=== PATIENT | male | born 1950 | race Hispanic/Latino ===

== ENCOUNTER 2021-06-29 12:19 | Outpatient (CLI) | payer MEDICARE, OTHER ==
[2021-06-29] MEDS ORDERED: Lidocaine 1% PF 5 ML VIAL ONE (13:04)
[2021-06-29] MEDS ORDERED: Sodium Bicarbonate 2.5 MEQ/5 ML VIAL ONE (13:05)
[2021-06-29] MEDS ORDERED: Iopamidol-M 200 41% 20 ML VIAL ONE (13:12)
[2021-06-29 15:18] VITALS: BMI 30.4
[2021-06-29 15:27] VITALS: TEMP 98.2
[2021-06-29 16:15] VITALS: BP 130/70
== END 2021-06-29 12:20 | disposition home or self-care (01) ==
LOC: CSHRAD 12:19
PROVIDERS: ATTEND Neurological Surgery
DX: M54.16 Radiculopathy, lumbar region (principal); M47.816 Spondylosis without myelopathy or radiculopathy, lumbar region
CPT/HCPCS: 62304; 72110; 72132; Q9966